=== PATIENT | male | born 1990 | race African-American/Black ===

== ENCOUNTER 2024-11-06 17:07 | Emergency (ER) | payer OTHER ==
[2024-11-06] MEDS ORDERED: Acetaminophen 500 MG TAB ONE (18:11)
[2024-11-06] MEDS ORDERED: Morphine 4 MG/ML VIAL ONE (18:14)
== END 2024-11-06 19:12 | disposition home or self-care (01) ==
LOC: ERS 17:07
DX: S06.0XAA Concussion with loss of consciousness status unknown, initial encounter (principal); S70.12XA Contusion of left thigh, initial encounter; S00.81XA Abrasion of other part of head, initial encounter; V43.52XA Car driver injured in collision with other type car in traffic accident, initial encounter; W22.11XA Striking against or struck by driver side automobile airbag, initial encounter; Y93.89 Activity, other specified
CPT/HCPCS: 70450; 70486; 72125; 72128; 93005; 96372; G0390; J2272